=== PATIENT | male | born 1960 | race Caucasian/White ===

== ENCOUNTER 2018-09-13 12:54 | Day surgery (SDC) | payer MEDICARE ==
[2018-09-13 15:34] VITALS: BP 123/72; TEMP 98.8; BMI 22.3
[2018-09-13] MEDS ORDERED: Prevnar 13-Val Conj/PF 0.5 ML SYRINGE IM ONE (16:00)
--- NOTE | 2018-09-13 16:21 | ULT ---
ULTRASOUND GUIDED PARACENTESIS: Date: 09-13-18 History: Symptomatic ascites. FINDINGS: Informed consent obtained prior to the procedure. Note is made that the patient's INR is elevated, increasing the risk for bleeding. This was discussed with the ordering physician as well as the patient and the patient's family and despite the increase d risk of bleeding, procedure was felt to be medically necessary. Pre-procedural imaging demonstrates ascites within the right upper, right lower, and left lower quadr ant. The right midabdomen and prepped and draped in normal sterile fashion. Skin was anesthetized with 1% buffered Lidocaine. With direct sonographic guidance, a 5 [place] Curvoeh catheter is advanced into the ascites and removal o f the stylet yields yellow fluid. 4.7 L were removed. The patient tolerated the procedure well. No po st procedural bleeding. IMPRESSION: Successful ultrasound guided paracentesis yielding 4700 cc of yellow fluid. POS: [facility]
== END 2018-09-13 14:30 | disposition home or self-care (01) ==
LOC: ULT 12:54
PROVIDERS: ATTEND Internal Medicine
PROC: 0W9G3ZZ Drainage of Peritoneal Cavity, Percutaneous Approach (ICD-10-PCS; principal; 2018-09-13)
DX: R18.8 Other ascites (principal); Z88.0 Allergy status to penicillin; Z79.52 Long term (current) use of systemic steroids; Z79.2 Long term (current) use of antibiotics; Z79.899 Other long term (current) drug therapy
CPT/HCPCS: 49083

== ENCOUNTER 2018-09-25 11:07 | Emergency (ER) | payer MEDICARE ==
[2018-09-25 11:49] LABS: #Eosinphils 0.1 thou/uL (0.0-0.7); #Lymphocytes 1.2 thou/uL (1.20-3.40); #Monocytes 1.7 thou/uL (0.11-0.59); #Neutrophils 11.1 thou/uL (1.40-6.50); %Basophils 0.3 % (0.0-1.0); %Eosinophils 0.6 % (0.0-10.0); %Lymphocytes 8.8 % (21.0-51.0); %Monocytes 11.7 % (0.0-10.0); %Neutrophils 78.6 % (42.0-75.0); Hemoglobin 10.6 g/dL (14.0-18.0); Mean Corpuscular HGB CONC 33.5 g/dL (32.0-36.0); Mean Corpuscular Hemoglobin 34.2 pg (27.0-31.0); Mean Platelet Volume 7.3 fL (7.4-10.4); Platelet Count 200 thou/uL (130-400); RBC Distribution Width 12.9 % (11.5-14.5); Red Blood Cell (RBC) Count 3.09 mill/uL (4.70-6.10); White Blood Cell (WBC) Count 14.1 thou/uL (4.8-10.8)
[2018-09-25 12:28] LABS: ALT (SGPT) 23 U/L (8-55); AST (SGOT) 54 U/L (5-34); Alkaline Phosphatase 130 U/L (40-150); Anion Gap 14 mmol/L (10-20); BUN (Urea Nitrogen) 12 mg/dL (8.4-25.7); Bilirubin, Total 8.3 mg/dL (0.2-1.2); Calc. Creatinine Clearance 0 mL/min (70-130); Calcium 8.4 mg/dL (7.8-10.44); Carbon Dioxide 20 mmol/L (22-29); Chloride 97 mmol/L (98-107); Estimated GFR-MDRD Greater than 90; Globulin 4.9 g/dL (2.4-3.5); Glucose 111 mg/dL (70-105); Potassium 4.7 mmol/L (3.5-5.1); Protein, Total 6.9 g/dL (6.0-8.3); Sodium 126 mmol/L (136-145)
--- NOTE | 2018-09-25 12:32 | RAD ---
CHEST 1 VIEW: HISTORY: Shortness of breath worsening over the last 3 days. History of cirrhosis. Prior paracentesis, 019. COMPARISON: 08/28/2018. FINDINGS: Somewhat less than optimal inspiratory effort noted bilaterally. Horizontal parenchymal changes in t he left lower lobe which are new from the prior study raise the concern for left lower lobe partial a telectasis and/or pneumonia with possible small left pleural effusion. The upper lung zones and righ t lung are clear. No significant cardiomegaly. IMPRESSION: Parenchymal change in the left lower lobe new from prior study raising concern for left lower pneumon ia and/or atelectasis. POS: [facility]
[2018-09-25] MEDS ORDERED: Lidocaine 1% w/Epinephrine 1:100K 20 ML VIAL ONE (14:09)
== END 2018-09-25 15:30 ==
LOC: ERS 11:07
DX: K72.10 Chronic hepatic failure without coma (principal); R14.0 Abdominal distension (gaseous); R06.02 Shortness of breath; I10 Essential (primary) hypertension; K21.9 Gastro-esophageal reflux disease without esophagitis; Z79.899 Other long term (current) drug therapy
CPT/HCPCS: 36415; 71045; 80053; 83880; 84484; 85025; 93005; J2001

== ENCOUNTER 2018-10-06 09:49 | Day surgery (SDC) | payer MEDICARE ==
[2018-10-05 15:02] VITALS: BMI 21.7
[2018-10-06] MEDS ORDERED: Sodium Bicarbonate 2.5 MEQ/5 ML VIAL ONE (10:23)
[2018-10-06 14:49] VITALS: BP 116/71; TEMP 97.7
--- NOTE | 2018-10-06 15:23 | ULT ---
ULTRASOUND GUIDED PARACENTESIS THERAPEUTIC: DATE: 10/06/2018. HISTORY: A 58-year-old male with alcoholic cirrhosis and associated symptomatic ascites causing abdominal dist ention and abdominal discomfort. TECHNIQUE: Signed informed consent obtained. Ultrasound survey of 4 quadrants of abdomen. Pocket of fluid in t he right upper quadrant selected. Overlying skin prepared and draped in the usual sterile fashion. A 25-gauge needle was used to apply buffered Lidocaine superficially and deeply under ultrasound guid ance. Under ultrasound guidance, a 5 Sammarinese Yueh catheter was advanced in tandem with the 25-gauge n eedle into the pocket of free fluid. The stylette of the Yueh catheter and the 25-gauge needle were removed. The Yueh catheter was connected to a series of evacuated bottles via plastic tubing. Hortencia ter was removed after drainage. The patient tolerated the procedure well. No complications. FINDINGS: Images prior to the paracentesis demonstrate a large pocket of fluid in the right upper quadrant, and small and moderate-sized pockets of free fluid elsewhere. Subsequent images demonstrate a 25-gauge needle, followed by a Yueh catheter, in the pocket of free f luid in the right upper quadrant. A total of 5250 mL of nonhemorrhagic, translucent, straw-colored fluid was drained. Post drainage image demonstrates a significant moderate amount of remaining free fluid in the right u pper quadrant. IMPRESSION: Successful therapeutic paracentesis, with drainage of 5.25 L of ascites fluid. POS: [facility]
== END 2018-10-06 12:30 ==
LOC: ULT 09:49
PROVIDERS: ATTEND Internal Medicine
PROC: 0W9G3ZZ Drainage of Peritoneal Cavity, Percutaneous Approach (ICD-10-PCS; principal; 2018-10-06)
DX: K70.31 Alcoholic cirrhosis of liver with ascites (principal); K72.90 Hepatic failure, unspecified without coma; Z79.52 Long term (current) use of systemic steroids; Z79.899 Other long term (current) drug therapy; Z88.0 Allergy status to penicillin
CPT/HCPCS: 49083

== ENCOUNTER 2018-10-16 14:47 | Inpatient (IN) | payer MEDICARE ==
[2018-10-16] MEDS ORDERED: Pantoprazole 40 MG VIAL ONE (15:41)
[2018-10-16 15:55] LABS: #Basophils 0.1 thou/uL (0.0-0.2); #Eosinphils 0.3 thou/uL (0.0-0.7); #Lymphocytes 1.7 thou/uL (1.20-3.40); #Monocytes 1.7 thou/uL (0.11-0.59); #Neutrophils 10.8 thou/uL (1.40-6.50); %Basophils 0.4 % (0.0-1.0); %Eosinophils 2.3 % (0.0-10.0); %Lymphocytes 11.5 % (21.0-51.0); %Monocytes 11.5 % (0.0-10.0); %Neutrophils 74.3 % (42.0-75.0); Mean Corpuscular HGB CONC 32.9 g/dL (32.0-36.0); Mean Corpuscular Hemoglobin 32.8 pg (27.0-31.0); Mean Corpuscular Volume 99.6 fL (78.0-98.0); Mean Platelet Volume 7.9 fL (7.4-10.4); Platelet Count 166 thou/uL (130-400); RBC Distribution Width 12.8 % (11.5-14.5); Red Blood Cell (RBC) Count 2.74 mill/uL (4.70-6.10); White Blood Cell (WBC) Count 14.6 thou/uL (4.8-10.8)
[2018-10-16 16:03] LABS: INR-International Normal Ratio 2.5; PTT 41.1 SEC (22.9-36.1); Prothrombin Time 27.2 SEC (12.0-14.7)
[2018-10-16 16:12] LABS: ALT (SGPT) 26 U/L (8-55); AST (SGOT) 64 U/L (5-34); Albumin 1.8 g/dL (3.5-5.0); Alkaline Phosphatase 176 U/L (40-150); Anion Gap 15 mmol/L (10-20); BUN (Urea Nitrogen) 32 mg/dL (8.4-25.7); Bilirubin, Total 5.8 mg/dL (0.2-1.2); Calc. Creatinine Clearance 0 mL/min (70-130); Calcium 8.3 mg/dL (7.8-10.44); Carbon Dioxide 19 mmol/L (22-29); Chloride 95 mmol/L (98-107); Estimated GFR-MDRD 31; Globulin 4.7 g/dL (2.4-3.5); Glucose 119 mg/dL (70-105); Potassium 5.5 mmol/L (3.5-5.1); Protein, Total 6.5 g/dL (6.0-8.3); Sodium 123 mmol/L (136-145)
--- NOTE | 2018-10-16 18:31 | PDOC.FPRHP ---
- History of Present Illness Chief Complaint: Dark red stools History of Present Illness: Mr. Mari is a 58 yo M with PMHx alcoholic cirrhosis who presents to ED from [facility] for concern of maroon stools. He had 1 BM this morning and another one around lunch time. None since then. This has never happened before. He has also had some epigastric pain that is intermittent. None at this time. No radiation. ED Course: Protonix 40mg, 1L NS - Allergies/Adverse Reactions Allergies Allergy/AdvReac Type Severity Reaction Status Date / Time Penicillins Allergy Verified 10/16/18 21:31 - Home Medications Medication Instructions Recorded Confirmed Type Folic Acid [Folvite] 1 mg PO DAILY 08/17/18 10/16/18 History Furosemide [Lasix] 40 mg PO DAILY 08/17/18 10/16/18 History Rifaximin [Xifaxan] 550 mg PO BID 08/17/18 10/16/18 History Thiamine 100 mg PO DAILY 08/17/18 10/16/18 History prednisoLONE [Orapred Oral 40 mg PO DAILY 08/17/18 10/16/18 History Solution] Atenolol [Tenormin] 12.5 mg PO DAILY #0 tab 09/15/18 10/16/18 Rx Ipratropium/Albuterol Sulfate 3 ml NEB Q6H PRN #0 neb 09/15/18 10/16/18 Rx [DuoNeb] Lactulose 20 gm PO BID #0 udcup 09/15/18 10/16/18 Rx Pantoprazole [Protonix] 40 mg PO DAILY #0 tab 09/15/18 10/16/18 Rx Spironolactone [Aldactone] 100 mg PO BID-WM #0 tab 09/15/18 10/16/18 Rx - History PMHx: Alcoholic cirrhosis, HTN, GERD, hepatic encephalopathy PSHx: R ACL surgery, back surgery (herniated disk L4-L5) FHx: Dad - HTN Social: H/o chronic alcohol abuse (last use July 2018), tobacco abuse ( dipping since 13 years old) - Review of Systems General: denies: fever/chills Eyes: denies: eye pain, vision changes ENT: denies: nasal congestion, rhinorrhea Respiratory: reports: cough (dry), shortness of breath (all the time (can walk with wheelchair)) Cardiovascular: denies: chest pain, palpitation Gastrointestinal: reports: GI bleeding. denies: nausea, vomiting Genitourinary: denies: dysuria, polyuria Skin: reports: rashes, jaundice Musculoskeletal: denies: stiffness, swelling Neurological: denies: syncope, seizure Psychological: reports: anxiety, depression - Vital signs BP: 102/61 HR: 96 RR: 16 Tmax: 98.4 Pox: 97% on RA Wt: 175 lb - Physical Exam Constitutional: NAD, awake, alert and oriented (slow speech, slightly slurred) HEENT: normocephalic and atraumatic, PERRLA, EOMI, other (icteric sclera) Neck: supple, trachea midline Chest: no-tender to palpation, no lesions, other (spider angiomata) Heart: RRR, normal S1/S2, no murmurs/rubs/gallops, pulses present, other (2+ pitting edema to hips) Lungs: CTAB, no respiratory distress Abdomen: soft, non-tender, bowel sounds present, other (+ ascites, + fluid wave , mild caput medusa) Musculoskeletal: other (Upper limb atrophy) Neurological: no focal deficit, other (speech slurred) Skin: other (spider angiomata, scattered bruising) Heme/Lymphatic: other (bruising on hands) Psychiatric: normal mood and affect, good judgment and insight, intact recent and remote memory FMR H&P: Results - Labs Result Diagrams: 10/16/18 21:30 10/16/18 15:36 Lab results: WBC 14.6 thou/uL (4.8-10.8) H 10/16/18 15:36 Hgb 9.0 g/dL (14.0-18.0) L 10/16/18 15:36 Hct 27.3 % (42.0-52.0) L 10/16/18 15:36 MCV 99.6 fL (78.0-98.0) H 10/16/18 15:36 Plt Count 166 thou/uL (130-400) 10/16/18 15:36 Neutrophils % 74.3 % (42.0-75.0) 10/16/18 15:36 Sodium 123 mmol/L (136-145) L 10/16/18 15:36 Potassium 5.5 mmol/L (3.5-5.1) H 10/16/18 15:36 Chloride 95 mmol/L (98-107) L 10/16/18 15:36 Carbon Dioxide 19 mmol/L (22-29) L 10/16/18 15:36 BUN 32 mg/dL (8.4-25.7) H 10/16/18 15:36 Creatinine 2.22 mg/dL (0.7-1.3) H 10/16/18 15:36 Glucose 119 mg/dL (70-105) H 10/16/18 15:36 Calcium 8.3 mg/dL (7.8-10.44) 10/16/18 15:36 Total Bilirubin 5.8 mg/dL (0.2-1.2) H 10/16/18 15:36 AST 64 U/L (5-34) H 10/16/18 15:36 ALT 26 U/L (8-55) 10/16/18 15:36 Alkaline Phosphatase 176 U/L (40-150) H 10/16/18 15:36 Serum Total Protein 6.5 g/dL (6.0-8.3) 10/16/18 15:36 Albumin 1.8 g/dL (3.5-5.0) L 10/16/18 15:36 FMR H&P: A/P - Problem List (1) Melena Current Visit: Yes Status: Acute Code(s): K92.1 - MELENA (2) GI bleed Current Visit: Yes Status: Acute Code(s): K92.2 - GASTROINTESTINAL HEMORRHAGE, UNSPECIFIED (3) Hyperkalemia Current Visit: Yes Status: Acute Code(s): E87.5 - HYPERKALEMIA (4) Hyponatremia Current Visit: Yes Status: Acute Code(s): E87.1 - HYPO-OSMOLALITY AND HYPONATREMIA (5) Cirrhosis Current Visit: Yes Status: Chronic Code(s): K74.60 - UNSPECIFIED CIRRHOSIS OF LIVER Qualifiers: Hepatic cirrhosis type: alcoholic cirrhosis Ascites presence: with ascites Qualified Code(s): K70.31 - Alcoholic cirrhosis of liver with ascites (6) History of alcohol abuse Current Visit: Yes Status: Chronic Code(s): Z87.898 - PERSONAL HISTORY OF OTHER SPECIFIED CONDITIONS (7) Hyperbilirubinemia Current Visit: Yes Status: Acute Code(s): E80.6 - OTHER DISORDERS OF BILIRUBIN METABOLISM (8) Transaminitis Current Visit: Yes Status: Acute Code(s): R74.0 - NONSPEC ELEV OF LEVELS OF TRANSAMNS & LACTIC ACID DEHYDRGNSE (9) Elevated INR Current Visit: Yes Status: Acute Code(s): R79.1 - ABNORMAL COAGULATION PROFILE (10) Leukocytosis Current Visit: Yes Status: Acute Code(s): D72.829 - ELEVATED WHITE BLOOD CELL COUNT, UNSPECIFIED (11) HTN (hypertension) Current Visit: Yes Status: Chronic Code(s): I10 - ESSENTIAL (PRIMARY) HYPERTENSION (12) LAUREN (acute kidney injury) Current Visit: Yes Status: Acute Code(s): N17.9 - ACUTE KIDNEY FAILURE, UNSPECIFIED (13) Hepatic encephalopathy Current Visit: Yes Status: Chronic Code(s): K72.90 - HEPATIC FAILURE, UNSPECIFIED WITHOUT COMA (14) DTs (delirium tremens) Current Visit: Yes Status: Resolved Code(s): F10.231 - ALCOHOL DEPENDENCE WITH WITHDRAWAL DELIRIUM (15) Physical deconditioning Current Visit: Yes Status: Acute Code(s): R53.81 - OTHER MALAISE - Plan Mr Mari is a 58yo male with liver cirrhosis presenting for blood in stool with likely upper GI bleed Suspected Upper GI Bleed - Start Protonix gtt - Consult GI in AM - Monitor coags daily - Repeat H&H and BMP ordered - NPO at midnight - Octreotide if bleeding recurs - Will start SBP ppx with Ceftriaxone - Admit to medical Hyperkalemia - 5.5, no EKG changes - Repeat BMP - If increased repeat EKG and Kayexalate Hyponatremia - Decreased from prior baseline, 123 - Continue to monitor Cirrhosis - MELD 34 - Monitor coags, daily CMP - Manage suspected GI bleed as above - Currently undergoing therapeutic paracentesis, scheduled for tomorrow at 0930 - Possibly paracentesis tonight. - Discussion of hospice at last hospitalization, pt opted to use days of rehab before hospice services. Consider consulting palliative care Deconditioning - Receiving PT/OT outpt currently - PT/OT LAUREN - Cr 2.22 - Continue to monitor Hyperbilirubinemia - Due to liver cirrhosis INR of 2.5 - Continue to monitor HTN - Monitor BPs - Home med Atenolol if elevated Hx of DTs - No alcohol use since Jul 2018 - Continue Thiamine for hx of alcohol abuse Hepatic Encepholopathy - Continue home spironolactone, lactulose and Xifaxan Code Status: DNR DVT ppx: None FMR H&P: Upper Level - Pertinent history 58 yo M with presents after having 2 melanotic stools at [place]. Endorses shortness of breath with exertion. Also endorses epigastric pain which comes and goes. Denies f/c, current abdominal pain. - Pertinent findings VS and labs reviewed Gen: awake, alert, oriented HEENT: NCAT, icteric sclera CHEST: spider angiomata CV: RRR, no murmur noted RESP: CTAB ABD: distended, bowel sound present, weeping lesion on L abdomen, no erythema, no tenderness, fluid wave present EXT: 2+ pitting edema to lower abdomen - Plan Date/Time: 10/16/18 1831 58 yo M here with melanotic stool concerning for upper GI bleed 1. Melena - Suspect upper GI bleed, protonix gtt - No BM since lunch time today - H&H stable, will repeat in 4 hours - No hematemesis - Monitor coags - SBP prophylaxis - Octreotide if any further evidence of bleeding 2. Hyperkalemia - No EKG changes - Will trend and give kayexelate if persistent/rising 3. Hyponatremia - Slightly lower than reported baseline - Will monitor 4. End stage cirrhosis - MELD 24 - Consider palliative care consult - Comfort measures 5. Hyperbilirubinemia, mild transaminitis, elevated INR - 2/2 liver disease 6. Leukocytosis - Aware, no concern for focal infection - Mild abdominal pain, consider dx paracentesis 7. HTN - Atenolol if tolerates 8. LAUREN - Elevated from baseline - Possibly component of hepatorenal syndrome 9. Hepatic encephalopathy - Rifaximin and lactulose I, Sylvie Cedeño MD, PGY-3, have evaluated this patient and agree with findings/ plan as outlined by technology internship resident. Pertinent changes/additions are listed here. Addendum - Attending - Attending Attestation Date/Time: 10/16/18 [id number] I personally evaluated the patient and discussed the management with Dr. York /Davidson. I agree with the History, Examination, Assessment and Plan documented above with any addition or exceptions noted below. Patient with history of alcoholic cirrhosis and suspected end stage disease ( DNAR status) presenting with 2 episodes of "maroon" stools at his retirement. He reports last episode at noon today and none since then. No increased pain other that from his abdominal distention, which was scheduled for paracentesis tomorrow. Denies fevers, chills, vomiting. Reports EGD a few months ago without varices. Hgb overall stable from previous checks, no active bleeding at this time. Will make NPO at midnight, sooner if bleeding recurs or hemodynamic instability ensues. Consult GI in AM. Protonix and Rocephin for SBP ppx though lower suspicion for upper GI bleed. If recurs will add octreotide. Trend H/H. MELD-Na has worsened recently, and renal values increased, portending poorer prognosis. Will give albumin x1 and recheck labs in AM to include coags. Patient is DNAR.
[2018-10-16] MEDS ORDERED: Albumin 25% 25 GM/100 ML BOT IVPB SCH ×2 (21:12→21:30)
[2018-10-16 21:33] VITALS: BMI 23.0
[2018-10-16 21:44] LABS: Hemoglobin 9.1 g/dL (14.0-18.0); Platelet Count 161 thou/uL (130-400)
[2018-10-16 22:02] LABS: Anion Gap 14 mmol/L (10-20); BUN (Urea Nitrogen) 32 mg/dL (8.4-25.7); Calc. Creatinine Clearance 39 mL/min (70-130); Calcium 8.3 mg/dL (7.8-10.44); Carbon Dioxide 20 mmol/L (22-29); Chloride 97 mmol/L (98-107); Estimated GFR-MDRD 31; Glucose 100 mg/dL (70-105); Potassium 5.8 mmol/L (3.5-5.1); Sodium 125 mmol/L (136-145)
[2018-10-16] MEDS: Pantoprazole 80 MG in Sodium Chloride 0.9% 100 ML IVP SCH (22:06)
[2018-10-16] MEDS: cefTRIAXone\\ROCEPHIN 1 GM in Sodium Chloride 0.9% 100 ML IVPB SCH (22:18)
[2018-10-17] MEDS: Morphine 2 MG/ML SYRINGE SLOW IVP PRN ×2 (01:15→08:57)
[2018-10-17] MEDS ORDERED: Ondansetron PF 4 MG/2 ML Vial SLOW IVP PRN (01:30)
[2018-10-17 02:07] LABS: #Eosinphils 0.2 thou/uL (0.0-0.7); #Lymphocytes 1.1 thou/uL (1.20-3.40); #Neutrophils 11.8 thou/uL (1.40-6.50); %Basophils 0.3 % (0.0-1.0); %Eosinophils 1.4 % (0.0-10.0); %Lymphocytes 7.5 % (21.0-51.0); %Monocytes 6.9 % (0.0-10.0); Mean Corpuscular HGB CONC 32.5 g/dL (32.0-36.0); Mean Corpuscular Hemoglobin 32.8 pg (27.0-31.0); Mean Platelet Volume 7.7 fL (7.4-10.4); Platelet Count 168 thou/uL (130-400); RBC Distribution Width 12.8 % (11.5-14.5); Red Blood Cell (RBC) Count 2.75 mill/uL (4.70-6.10); White Blood Cell (WBC) Count 14.1 thou/uL (4.8-10.8)
--- NOTE | 2018-10-17 02:07 | PDOC.EVN ---
Event Note - Event Note Event Note: Residents called to bedside after patient had large red BM and was complaining of increased abdominal pain. At this time, the patient says the severe pain has passed and he is just having a little discomfort and nausea. He did not see the BM but the nurse reports there was a "good amount" of bright red blood in the toilet. Discussed with him the possibility of needing a blood transfusion which he agrees to if necessary. Risks/benefits/alternatives discussed including risk of allergic reaction/transfusion reaction or very low risk of transmission of disease. Shortly thereafter, nurse reported that he had become tachycardic to the 110s. Pain was still the same, mild but manageable. No further BM at this time. Stat H &H ordered and was noted to be stable. Type and cross for 2 units initiated at this time. Will plan for transfusion if remains tachycardic, any more BRBPR/ hematemesis or other concerning signs. Will consult Dr. Astudillo and follow recommendations. NPO. Patient and family understanding and agreeable to plan at this time.
[2018-10-17 02:14] LABS: Prothrombin Time 30.8 SEC (12.0-14.7)
[2018-10-17] MEDS: Octreotide Acetate 1,250 MCG in Sodium Chloride 0.9% 250 ML 250 ML IVPB SCH (02:33)
[2018-10-17 03:03] LABS: ALT (SGPT) 25 U/L (8-55); AST (SGOT) 56 U/L (5-34); Albumin 2.2 g/dL (3.5-5.0); Alkaline Phosphatase 145 U/L (40-150); Anion Gap 18 mmol/L (10-20); BUN (Urea Nitrogen) 35 mg/dL (8.4-25.7); Bilirubin, Total 6.8 mg/dL (0.2-1.2); Calc. Creatinine Clearance 35 mL/min (70-130); Calcium 8.6 mg/dL (7.8-10.44); Carbon Dioxide 16 mmol/L (22-29); Chloride 97 mmol/L (98-107); Estimated GFR-MDRD 27; Globulin 4.3 g/dL (2.4-3.5); Glucose 105 mg/dL (70-105); Protein, Total 6.5 g/dL (6.0-8.3); Sodium 126 mmol/L (136-145)
[2018-10-17] MEDS ORDERED: Lactated Ringer's 500 ML IV SCH (03:30)
[2018-10-17] MEDS ORDERED: Octreotide Acetate 1,000 mcg/ml Multi-Dose Vial IV SCH (04:00)
[2018-10-17] MEDS ORDERED: Octreotide Acetate 100 MCG/ML VIAL SLOW IVP SCH ×2 (04:00)
[2018-10-17] MEDS: Pantoprazole 80 MG in Sodium Chloride 0.9% 100 ML IVP SCH ×2 (06:50→18:24)
--- NOTE | 2018-10-17 07:52 | PDOC.FM ---
- Subjective Subjective: Mr. Mari is resting comfortably in bed, he reports improved pain and no recent hematochezia - Objective Vital Signs & Weight: Vital Signs (12 hours) Temp Pulse Pulse Resp BP BP Pulse Ox 10/17/18 07:31 97.8 F 103 H 16 114/69 100 10/17/18 06:21 97.6 F 103 H 18 113/68 100 10/17/18 06:11 97.6 F 99 16 110/70 100 10/17/18 05:49 97.3 F L 103 H 18 105/62 100 10/17/18 04:00 97.7 F 104 H 16 106/65 100 10/17/18 01:56 117 H 10/17/18 01:14 95 20 119/67 94 L 10/16/18 21:36 93 L 10/16/18 21:34 97.9 F 95 18 111/71 93 L Weight Weight 74.84 kg I&O: 10/16/18 10/17/18 10/18/18 06:59 06:59 06:59 Intake Total 1075 Balance 1075 Result Diagrams: 10/17/18 01:48 10/17/18 01:48 Phys Exam - Physical Examination Constitutional: NAD HEENT: moist MMs Neck: no JVD Respiratory: clear to auscultation bilateral Cardiovascular: RRR, no significant murmur tender, distended Neurological: non-focal Psychiatric: normal affect Deviation from normal: stigmata of chronic liver disease Dx/Plan (1) Elevated INR Code(s): R79.1 - ABNORMAL COAGULATION PROFILE Status: Acute (2) GI bleed Code(s): K92.2 - GASTROINTESTINAL HEMORRHAGE, UNSPECIFIED Status: Acute (3) Hyperbilirubinemia Code(s): E80.6 - OTHER DISORDERS OF BILIRUBIN METABOLISM Status: Acute (4) Hyperkalemia Code(s): E87.5 - HYPERKALEMIA Status: Acute (5) Cirrhosis Code(s): K74.60 - UNSPECIFIED CIRRHOSIS OF LIVER Status: Chronic Qualifiers: Hepatic cirrhosis type: alcoholic cirrhosis Ascites presence: with ascites Qualified Code(s): K70.31 - Alcoholic cirrhosis of liver with ascites (6) Hepatic encephalopathy Code(s): K72.90 - HEPATIC FAILURE, UNSPECIFIED WITHOUT COMA Status: Chronic (7) History of alcohol abuse Code(s): Z87.898 - PERSONAL HISTORY OF OTHER SPECIFIED CONDITIONS Status: Chronic - Plan Plan: Suspected Upper GI Bleed - Protonix drip, octreotide, consider adding propranolol - Monitor coags, H&H and BMP - NPO until seen by GI - Will start SBP ppx with Ceftriaxone - monitor on medical - GI consulted, Dr. Astudillo. Appreciate recommendations Hyperkalemia - 5.5, no EKG changes - Kayexalate given - continue to monitor Hyponatremia - Decreased from prior baseline, 123 - Continue to monitor Cirrhosis - MELD 34 - Monitor coags, daily CMP - Manage suspected GI bleed as above - Currently undergoing therapeutic paracentesis, scheduled for tomorrow at 0930 - Discussion of hospice at last hospitalization, pt opted to use days of rehab before hospice services. - PC consulted Deconditioning - Receiving PT/OT outpt currently - PT/OT LAUREN - Cr 2.22 - Continue to monitor Hyperbilirubinemia - Due to liver cirrhosis INR of 2.5 - Continue to monitor HTN - Monitor BPs - Home med Atenolol if elevated Hx of DTs - No alcohol use since Jul 2018 - Continue Thiamine for hx of alcohol abuse Hepatic Encepholopathy - Continue home spironolactone, lactulose and Xifaxan Code Status: DNR DVT ppx: None
[2018-10-17] MEDS ORDERED: Spironolactone 100 MG TAB PO SCH (08:00)
[2018-10-17] MEDS: Folic Acid 1 MG TAB PO SCH (08:56)
[2018-10-17] MEDS: Rifaximin 550 MG TAB PO SCH ×2 (08:57→20:53)
--- NOTE | 2018-10-17 09:26 | EKG ---
Test Reason : ROUTINE Blood Pressure : / mmHG Vent. Rate : 112 BPM Atrial Rate : 112 BPM P-R Int : 148 ms QRS Dur : 072 ms QT Int : 348 ms P-R-T Axes : 032 -05 018 degrees QTc Int : 475 ms Sinus tachycardia Possible Lateral infarct , age undetermined Abnormal ECG When compared with ECG of 25-SEP-2018 11:33, Nonspecific T wave abnormality now evident in Anterolateral leads Confirmed by DR. Mayte SANDERS ([id number]) on 10/17/2018 9:25:57 AM Referred By: MYRNA ANDRADE Confirmed By:DR. Mayte SANDERS
--- NOTE | 2018-10-17 13:07 | PRG ---
DATE OF SERVICE: 10/17/2018 Mr. Mari is an unfortunate 58-year-old man, admitted with upper GI bleed and advanced cirrhosis. He is currently on octreotide and PPI infusion, awaiting consultation with the GI Service for endoscopy. He will also need a repeat paracentesis as he is now receiving this every 1 to 2 weeks. Job ID: [id number]
[2018-10-17] MEDS ORDERED: GoLYTELY 4,000 ml Bottle PO SCH (18:00)
[2018-10-17] MEDS: Melatonin 3 MG TAB PO SCH (20:52)
[2018-10-17] MEDS: Midodrine HCl 5 MG TAB PO SCH (20:53)
[2018-10-17] MEDS: Albumin 25% 25 GM/100 ML BOT IVPB SCH (21:00)
--- NOTE | 2018-10-17 21:43 | CON ---
DATE OF CONSULTATION: 10/17/2018 REASON FOR CONSULTATION: Cirrhosis, hematochezia. CONSULTING PHYSICIAN: Atiya York MD. HISTORY OF PRESENT ILLNESS: The patient is a 58-year-old male, with past medical history of hypertension, GERD, alcoholic hepatitis, and alcoholic cirrhosis complicated by ascites and hepatic encephalopathy, presenting with complaints of hematochezia. Upon chart review, the patient was admitted to [facility] in 07/2018 with complaints of significant weakness after sustaining a fall at home. He was ultimately transferred to [facility] where he was noted to have increased ascites as well as cirrhotic morphology on imaging. He did undergo an EGD during that particular hospitalization and per the patient's daughter, they did not find any evidence of esophageal varices, but instead found "spider webs" in the lining of the stomach consistent with portal hypertensive gastropathy. He was subsequently discharged to a rehab facility and had been in that institution ever since. However, approximately 2 days ago, he experienced the onset of hematochezia, characterized as a large amount of maroon-colored stools and over the next 24 to 48 hours have 3 additional stools that were maroonish in color. There was no associated pain with having a bowel movement, although he did endorse some increased midepigastric pain. It was characterized as a sharp stabbing type sensation, was intermittent, would last for 5 to 10 seconds and occur every 2 to 3 hours with a severity of 10/10 when it did occur. In comparing the relations of the blood to the abdominal pain, the hematochezia came first with the midepigastric abdominal pain appearing later, but again not clearly associated one with the other. Over the course of this hospitalization, he had the appearance of a bright red blood bowel movement this morning that was not witnessed by nursing staff and communicated to the resident doctor on-call. Today he states that he is feeling well except for intermittent midepigastric abdominal pain that is currently being controlled by morphine. He has not had any further bowel movements, bloody or otherwise, over the course of today. He does complain of increased abdominal distention and had been having increased abdominal distention for sometime for which he has been getting routine paracenteses in order to drain off the ascitic fluid for comfort. He has also been taking lactulose twice daily, and while on this regimen, was having approximately 2 semi-solid bowel movements today with clear sensorium. On examination today, he did exhibit clear sensorium with being oriented x4. Currently, he denies any nausea, vomiting, fevers, chills, hematemesis, constipation, dysphagia, or odynophagia. Of note, he did have that EGD at [facility] in 07/2018, which showed no varices, but the presence of portal hypertensive gastropathy. He has never had a colonoscopy. REVIEW OF SYSTEMS: A 10-category review of systems was obtained with all responses negative except for the pertinent positives as listed in HPI. PAST MEDICAL HISTORY: As per HPI. PAST SURGICAL HISTORY: Back surgery and right ACL surgery. FAMILY HISTORY: Denies any GI malignancies. SOCIAL HISTORY: Drinking approximately 12 beers daily for the last 20 years prior to 07/2018, but has discontinued all alcohol consumption since then. He does endorse chewing tobacco though currently. No illicit drug use. OUTPATIENT MEDICATIONS: Reviewed. ALLERGIES: PENICILLIN. PHYSICAL EXAMINATION: VITAL SIGNS: Temperature 98, pulse 105, blood pressure 100/56, respiratory rate 16, saturating 100% on room air. GENERAL: The patient was lying in bed, in no acute distress. Alert and oriented x4. HEENT: Neck, supple. No JVD noted, but mild scleral icterus was seen. CARDIOVASCULAR: Tachycardic rate, but regular rhythm. No discernible murmurs, gallops, or rubs. RESPIRATORY: Clear to auscultation bilaterally with no discernible wheezes or rales. ABDOMEN: Normoactive bowel sounds. Mild tenseness to palpation with significant abdominal distention. Mild tenderness to palpation in the midepigastric region , but no other abnormalities during abdominal exam. EXTREMITIES: 2+/3+ bilateral lower extremity edema extending up into the bilateral thighs. No cyanosis or clubbing. LABORATORY DATA: CBC with a white blood cell count of 14.1, hemoglobin 9, hematocrit 27.7, platelets 168. INR 3. Chemistry with a sodium of 126, potassium 5, chloride 97, CO2 of 16, BUN 35, creatinine 2.46, glucose 105, AST 56, ALT 25, alkaline phosphatase 145, total bilirubin 6.8. MELD score calculated at 36. IMAGING DATA: No current GI imaging is available for review. ASSESSMENT AND PLAN: The patient is a 58-year-old male with past medical history of hypertension, gastroesophageal reflux disease, alcoholic hepatitis, and alcoholic cirrhosis complicated by ascites and hepatic encephalopathy, presenting with hematochezia. Hematochezia. The patient is presenting with acute onset of hematochezia, characterized as maroon to bright red bloody bowel movements that have been occurring over the last 48 to 72 hours. During this hospitalization, he has had an observed bright red bloody bowel movement which raises concern for either brisk upper gastrointestinal bleed versus a colonic bleeding source. Given his relative hemodynamic stability, the likelihood of an upper GI bleeding source is unlikely as well as a recent EGD within the last few months only showing portal hypertensive gastropathy, which could potentially lead to significant bleeding with an elevated INR, but also unlikely. At this point, the colonic origin of his bleeding is a bit more likely and could be due to any numbered reasons including portal hypertensive colopathy, inflammatory bowel disease (less likely), hemorrhoidal bleeding, arteriovenous malformation, Dieulafoy lesion, ischemic colitis and/or gastrointestinal neoplasm. Given the possibility that an upper gastrointestinal bleeding source cannot be ruled out, I would recommend endoscopic evaluation with both upper and lower endoscopy. Recommendations: 1. We will continue to trend H and H and transfuse as necessary to maintain an H and H of 7/21. 2. Continue to monitor clinically for signs of active GI bleeding. 3. We would place the patient on a clear liquid diet today with plans for GoLYTELY prep in anticipation for EGD and colonoscopy tomorrow. Please make the patient n.p.o. at midnight in preparation for these procedures. 4. We would continue to trend INR and evaluation of neurological status daily as they could be harbingers of worsening hepatic function. Cirrhosis. The patient is presenting with the diagnosis of cirrhosis in 07/2018 based upon thrombocytopenia, cirrhotic morphology on imaging, and portal hypertensive gastropathy on upper endoscopy. At this time, the most likely etiology would be chronic alcohol use where the patient was drinking approximately 12 beers daily for the last 20+ years. Currently with decompensated disease and given the presence of ascites and hepatic encephalopathy with a current MELD score of 36 and Child- Craig classification C. There is no current GI imaging available in our system to evaluate for the possibility of possible hepatocellular carcinoma. However, given his significantly elevated MELD score, his 90-day mortality is approaching 70%. With the history of hepatic encephalopathy, it is currently controlled with lactulose b.i.d. and for his ascites, he has been getting routine paracenteses in order to drain the fluid for comfort. However, upon evaluation of his lab during this admission, he is noted to have a significantly elevated BUN as well as creatinine concerning for possible hepatorenal syndrome. He is currently on diuretic management, which could further confound the issue based on the possible prerenal azotemia associated with their use. Recommendations: 1. We would hold any diuretics at this point in time given the propensity to further renal dysfunction. 2. We would start the patient on albumin 50 g b.i.d. daily in an attempt to maintain a proper intravascular space and a slow progression of possible hepatorenal syndrome. 3. We would place the patient on midodrine 5 mg t.i.d. as part of treatment for hepatorenal syndrome. 4. We would continue PPI drip at this point in time as an adjunctive therapy for hepatorenal syndrome. 5. Given the patient's significantly elevated MELD score, hospice consultation is not unreasonable. We will continue to follow. Please call with any questions. Job ID: [id number] MABEL
[2018-10-17] MEDS: cefTRIAXone\\ROCEPHIN 1 GM in Sodium Chloride 0.9% 100 ML IVPB SCH (23:24)
[2018-10-18] MEDS: Morphine 2 MG/ML SYRINGE SLOW IVP PRN ×2 (00:29→08:19)
[2018-10-18] MEDS: Octreotide Acetate 1,250 MCG in Sodium Chloride 0.9% 250 ML 250 ML IVPB SCH (01:22)
[2018-10-18] MEDS: Pantoprazole 80 MG in Sodium Chloride 0.9% 100 ML IVP SCH ×2 (04:46→17:46)
[2018-10-18] MEDS ORDERED: Phenylephrine HCL 10 MG/ML VIAL ONE (06:58)
--- NOTE | 2018-10-18 07:00 | PDOC.FM ---
- Subjective Subjective: Mr. Mari is resting comfortably in bed, with his daughter at bedside. She reports no acute events overnight, and minimal bleeding. - Objective Vital Signs & Weight: Vital Signs (12 hours) Temp Pulse Resp BP Pulse Ox 10/18/18 04:00 98.1 F 103 H 16 97/56 L 94 L 10/18/18 00:00 98.6 F 94 18 110/60 92 L 10/17/18 20:00 100 10/17/18 19:33 97.7 F 106 H 16 105/65 100 Weight Admit Weight 74.84 kg Weight 74.84 kg I&O: 10/16/18 10/17/18 10/18/18 06:59 06:59 06:59 Intake Total 1075 3430 Output Total 200 Balance 1075 3230 Result Diagrams: 10/18/18 06:44 10/18/18 06:44 Phys Exam - Physical Examination Constitutional: NAD HEENT: moist MMs Neck: no JVD distended Musculoskeletal: no edema Neurological: non-focal Psychiatric: normal affect Skin: no rash Dx/Plan (1) Elevated INR Code(s): R79.1 - ABNORMAL COAGULATION PROFILE Status: Acute (2) GI bleed Code(s): K92.2 - GASTROINTESTINAL HEMORRHAGE, UNSPECIFIED Status: Acute (3) Hyperbilirubinemia Code(s): E80.6 - OTHER DISORDERS OF BILIRUBIN METABOLISM Status: Acute (4) Hyperkalemia Code(s): E87.5 - HYPERKALEMIA Status: Acute (5) Cirrhosis Code(s): K74.60 - UNSPECIFIED CIRRHOSIS OF LIVER Status: Chronic Qualifiers: Hepatic cirrhosis type: alcoholic cirrhosis Ascites presence: with ascites Qualified Code(s): K70.31 - Alcoholic cirrhosis of liver with ascites (6) Hepatic encephalopathy Code(s): K72.90 - HEPATIC FAILURE, UNSPECIFIED WITHOUT COMA Status: Chronic (7) History of alcohol abuse Code(s): Z87.898 - PERSONAL HISTORY OF OTHER SPECIFIED CONDITIONS Status: Chronic - Plan Plan: Suspected Upper GI Bleed - Protonix drip, octreotide - Monitor coags, H&H and BMP - Will start SBP ppx with Ceftriaxone - monitor on medical - GI consulted. Appreciate recommendations - upper and lower scopes today Hyperkalemia - 5.5, no EKG changes - Kayexalate given - continue to monitor Hyponatremia - Decreased from prior baseline, 123 - Continue to monitor Cirrhosis - MELD 34 - Monitor coags, daily CMP - Manage suspected GI bleed as above - Currently undergoing therapeutic paracentesis, scheduled for tomorrow at 0930 - Discussion of hospice at last hospitalization, pt opted to use days of rehab before hospice services. - PC consulted Deconditioning - Receiving PT/OT outpt currently - PT/OT LAUREN - Cr 2.22 - Continue to monitor Hyperbilirubinemia - Due to liver cirrhosis INR of 2.5 - Continue to monitor HTN - Monitor BPs - Home med Atenolol if elevated Hx of DTs - No alcohol use since Jul 2018 - Continue Thiamine for hx of alcohol abuse Hepatic Encepholopathy - Continue home spironolactone, lactulose and Xifaxan Code Status: DNR DVT ppx: None
[2018-10-18 07:12] LABS: #Eosinphils 0.2 thou/uL (0.0-0.7); #Lymphocytes 1.6 thou/uL (1.20-3.40); #Monocytes 2.3 thou/uL (0.11-0.59); #Neutrophils 11.6 thou/uL (1.40-6.50); %Basophils 0.2 % (0.0-1.0); %Monocytes 14.5 % (0.0-10.0); %Neutrophils 74.3 % (42.0-75.0); Hemoglobin 7.7 g/dL (14.0-18.0); Mean Corpuscular HGB CONC 33.1 g/dL (32.0-36.0); Mean Corpuscular Hemoglobin 33.5 pg (27.0-31.0); Mean Platelet Volume 7.7 fL (7.4-10.4); Platelet Count 130 thou/uL (130-400); RBC Distribution Width 12.6 % (11.5-14.5); Red Blood Cell (RBC) Count 2.28 mill/uL (4.70-6.10); White Blood Cell (WBC) Count 15.6 thou/uL (4.8-10.8)
[2018-10-18 07:16] LABS: Prothrombin Time 31.4 SEC (12.0-14.7)
[2018-10-18 07:29] LABS: ALT (SGPT) 17 U/L (8-55); AST (SGOT) 36 U/L (5-34); Albumin 2.6 g/dL (3.5-5.0); Alkaline Phosphatase 93 U/L (40-150); Anion Gap 17 mmol/L (10-20); BUN (Urea Nitrogen) 37 mg/dL (8.4-25.7); Bilirubin, Total 9.6 mg/dL (0.2-1.2); Calc. Creatinine Clearance 29 mL/min (70-130); Calcium 8.6 mg/dL (7.8-10.44); Carbon Dioxide 17 mmol/L (22-29); Chloride 95 mmol/L (98-107); Estimated GFR-MDRD 22; Globulin 3.7 g/dL (2.4-3.5); Glucose 121 mg/dL (70-105); Potassium 5.1 mmol/L (3.5-5.1); Protein, Total 6.3 g/dL (6.0-8.3); Sodium 124 mmol/L (136-145)
[2018-10-18] MEDS: Midodrine HCl 5 MG TAB PO SCH ×3 (08:22→20:34)
[2018-10-18] MEDS: Folic Acid 1 MG TAB PO SCH (08:22)
[2018-10-18] MEDS: Rifaximin 550 MG TAB PO SCH ×2 (08:22→20:34)
[2018-10-18] MEDS: Albumin 25% 25 GM/100 ML BOT IVPB SCH ×2 (08:24→20:34)
[2018-10-18] MEDS ORDERED: Fentanyl 100 MCG/2 ML VIAL SLOW IVP ONE (11:28)
[2018-10-18] MEDS ORDERED: PROPOFOL 200 MG/20 ML VIAL ONE (11:46)
[2018-10-18] MEDS ORDERED: PHENYLEPHRINE-NS 100 MCG/ML 10 ML SYRINGE ONE (11:46)
--- NOTE | 2018-10-18 12:30 | PRG ---
DATE OF SERVICE: 10/18/2018 Mr. Mari is sitting in bed, in no acute distress other than complaints of his abdominal distention. We are awaiting EGD and paracentesis. He has evidence of no further signs of bleeding. Job ID: [id number]
[2018-10-18] MEDS ORDERED: GoLYTELY 4,000 ml Bottle PO SCH (13:45)
[2018-10-18] MEDS ORDERED: Sodium Bicarbonate 2.5 MEQ/5 ML VIAL ONE (14:11)
[2018-10-18] MEDS ORDERED: Lidocaine 1% PF 5 ML VIAL ONE (14:11)
--- NOTE | 2018-10-18 15:14 | OP ---
DATE OF PROCEDURE: 10/18/2018 PROCEDURE PERFORMED: Incomplete colonoscopy. PREMEDICATION: Given by the Anesthesiology Department. PREPROCEDURE DIAGNOSIS: Rectal bleeding/hematochezia. POSTPROCEDURE DIAGNOSES: 1. Poor bowel prep, unable to visualize. 2. Stage III prolapsing hemorrhoids. DESCRIPTION OF PROCEDURE: Written consents were obtained prior to procedure. After adequate sedation, rectal exam was performed. There were prolapsing hemorrhoids noted without any signs of bleeding or thrombosis. The endoscope was advanced into this rectal vault. A copious amount of loose, semi-liquid yellow stool was encountered. Despite vigorous irrigation, the colon could not be visualized. The endoscope was advanced up the sigmoid colon as a maximal extent. There was no bleeding seen. There was no blood visualized. Retroflexion could not be performed in the rectal vault. However, there were obvious stage III prolapsing hemorrhoids noted on rectal exam. There are no signs of bleeding from the hemorrhoids and no evidence of thrombosis. The patient tolerated the procedure well. ASSESSMENT: 1. Incomplete colon exam because of poor bowel prep. 2. Stage III prolapsing hemorrhoids. PLAN: Would plan additional bowel prep and re-attempt colonoscopy tomorrow. Job ID: [id number]
--- NOTE | 2018-10-18 15:21 | OP ---
DATE OF PROCEDURE: 10/18/2018 PROCEDURES PERFORMED: 1. Esophagogastroduodenoscopy. 2. Incomplete colonoscopy. PREPROCEDURE DIAGNOSES: 1. Hematochezia/rectal bleeding. 2. Acute on chronic anemia. 3. Cirrhosis. POSTPROCEDURE DIAGNOSES: 1. Mild portal gastropathy, otherwise normal upper endoscopy. 2. Inadequate bowel prep, unable to visualize colon. 3. Stage III prolapsing hemorrhoids, no bleeding. DESCRIPTION OF PROCEDURE: Written consents were obtained prior to the procedure. After adequate sedation, the forward viewing endoscope was advanced down the stomach under direct vision to the second portion of the duodenum. Both the second portion and the bulb appeared normal. The pylorus was patent. The gastric antrum, body, fundus, and cardia all appeared normal. Retroflexion did not show any gastric varices. The GE junction located at 36 cm from the incisors. There was no varices seen in the esophagus. Of note, only mild portal gastropathy was seen in the stomach without any source of bleeding seen. The patient tolerated the procedure well. ASSESSMENT: 1. Mild portal gastropathy. 2. Otherwise normal upper endoscopy. PLAN: Proceed with colonoscopy. Job ID: [id number]
--- NOTE | 2018-10-18 16:23 | ULT ---
SONOGRAPHIC GUIDED PARACENTESIS: 10/18/18 HISTORY: Abdominal pain and distention. Recurrent ascites. FINDINGS: After explaining the procedure and answering all questions, Sonographic survey shows large amount of free fluid. Sterile technique, buffered local anesthesia, sonographic guidance, and a right lateral a pproach were used to carefully advance a 19 gauge Yueh needle and catheter into the free fluid. Hortencia ter was left to drain a total volume of 7.0 liters dark slightly cloudy yellow liquid. Catheter was r emoved. Moderate amount of free fluid remained. Patient tolerated the procedure well and was dismisse d in improved condition. IMPRESSION: Technically successful sonographic guidance paracentesis. POS: [facility]
[2018-10-18] MEDS: Melatonin 3 MG TAB PO SCH (20:59)
[2018-10-18] MEDS: cefTRIAXone\\ROCEPHIN 1 GM in Sodium Chloride 0.9% 100 ML IVPB SCH (21:03)
[2018-10-19] MEDS: Octreotide Acetate 1,250 MCG in Sodium Chloride 0.9% 250 ML 250 ML IVPB SCH (03:03)
[2018-10-19] MEDS: Pantoprazole 80 MG in Sodium Chloride 0.9% 100 ML IVP SCH (03:05)
[2018-10-19 06:02] LABS: ALT (SGPT) 8 U/L (8-55); AST (SGOT) 21 U/L (5-34); Albumin 2.5 g/dL (3.5-5.0); Alkaline Phosphatase 58 U/L (40-150); Anion Gap 15 mmol/L (10-20); BUN (Urea Nitrogen) 39 mg/dL (8.4-25.7); Bilirubin, Total 8.4 mg/dL (0.2-1.2); Calc. Creatinine Clearance 30 mL/min (70-130); Carbon Dioxide 19 mmol/L (22-29); Chloride 97 mmol/L (98-107); Estimated GFR-MDRD 23; Globulin 2.1 g/dL (2.4-3.5); Glucose 111 mg/dL (70-105); Potassium 4.6 mmol/L (3.5-5.1); Protein, Total 4.6 g/dL (6.0-8.3); Sodium 126 mmol/L (136-145)
[2018-10-19 06:09] LABS: #Lymphocytes 1.1 thou/uL (1.20-3.40); #Monocytes 1.8 thou/uL (0.11-0.59); #Neutrophils 10.2 thou/uL (1.40-6.50); %Basophils 0.1 % (0.0-1.0); %Eosinophils 0.3 % (0.0-10.0); %Lymphocytes 8.4 % (21.0-51.0); %Monocytes 13.9 % (0.0-10.0); %Neutrophils 77.3 % (42.0-75.0); Hemoglobin 6.2 g/dL (14.0-18.0); Mean Corpuscular HGB CONC 32.1 g/dL (32.0-36.0); Mean Corpuscular Hemoglobin 32.9 pg (27.0-31.0); Mean Platelet Volume 8.3 fL (7.4-10.4); Platelet Count 105 thou/uL (130-400); RBC Distribution Width 12.5 % (11.5-14.5); White Blood Cell (WBC) Count 13.2 thou/uL (4.8-10.8)
[2018-10-19 06:10] LABS: Acanthocytes MODERATE= 6-15 cells (100X) (None Seen); Burr Cells SLIGHT = 2-5 cells (100X) (0-1/hpf); MDiff Complete? YES; Platelet Morphology Comment Appears Decreased
--- NOTE | 2018-10-19 06:56 | PDOC.FM ---
- Subjective Subjective: Mr. Mari is resting comfortably in bed, he reports his pain is well controlled and denies additional ischemia - Objective Vital Signs & Weight: Vital Signs (12 hours) Temp Pulse Resp BP Pulse Ox 10/18/18 23:45 99.6 F 76 20 100/60 93 L 10/18/18 20:00 94 L 10/18/18 19:13 99.1 F 101 H 16 97/59 L 92 L Weight Admit Weight 74.84 kg Weight 74.84 kg I&O: 10/17/18 10/18/18 10/19/18 06:59 06:59 06:59 Intake Total 1075 3430 600 Output Total 200 500 Balance 1075 3230 100 Result Diagrams: 10/19/18 04:10 10/19/18 04:10 Dx/Plan (1) Elevated INR Code(s): R79.1 - ABNORMAL COAGULATION PROFILE Status: Acute (2) GI bleed Code(s): K92.2 - GASTROINTESTINAL HEMORRHAGE, UNSPECIFIED Status: Acute (3) Hyperbilirubinemia Code(s): E80.6 - OTHER DISORDERS OF BILIRUBIN METABOLISM Status: Acute (4) Hyperkalemia Code(s): E87.5 - HYPERKALEMIA Status: Acute (5) Cirrhosis Code(s): K74.60 - UNSPECIFIED CIRRHOSIS OF LIVER Status: Chronic Qualifiers: Hepatic cirrhosis type: alcoholic cirrhosis Ascites presence: with ascites Qualified Code(s): K70.31 - Alcoholic cirrhosis of liver with ascites (6) Hepatic encephalopathy Code(s): K72.90 - HEPATIC FAILURE, UNSPECIFIED WITHOUT COMA Status: Chronic (7) History of alcohol abuse Code(s): Z87.898 - PERSONAL HISTORY OF OTHER SPECIFIED CONDITIONS Status: Chronic - Plan Plan: Suspected Upper GI Bleed - Protonix drip, octreotide - Monitor coags, H&H and BMP - Will start SBP ppx with Ceftriaxone - monitor on medical - GI consulted. Appreciate recommendations - repeat lower scope today Hyperkalemia - 5.5, no EKG changes - Kayexalate given - continue to monitor Hyponatremia - Decreased from prior baseline, 123 - Continue to monitor Cirrhosis - MELD 34 - Monitor coags, daily CMP - Manage suspected GI bleed as above - Currently undergoing therapeutic paracentesis, completed 10/18 - PC consulted, pt will return to [facility] on hospice when stable for DC Deconditioning - Receiving PT/OT outpt currently - PT/OT LAUREN - Cr elevated above baseline on admission - Continue to monitor HTN - Monitor BPs - Home med Atenolol if elevated Hx of DTs - No alcohol use since Jul 2018 - Continue Thiamine for hx of alcohol abuse Hepatic Encepholopathy - Continue home spironolactone, lactulose and Xifaxan Code Status: DNR DVT ppx: None
[2018-10-19] MEDS: Morphine 2 MG/ML SYRINGE SLOW IVP PRN ×2 (08:42→15:56)
[2018-10-19] MEDS: Folic Acid 1 MG TAB PO SCH (08:46)
[2018-10-19] MEDS: Midodrine HCl 5 MG TAB PO SCH ×2 (08:47→15:58)
[2018-10-19] MEDS: Rifaximin 550 MG TAB PO SCH (08:47)
--- NOTE | 2018-10-19 15:03 | PRG ---
DATE OF SERVICE: 10/19/2018 Mr. Mari is in seemingly good spirits this morning. He is still very slow of speech and somewhat lethargic. Unfortunately, his transaminases are improving, but INR is increasing suggesting that it is approaching complete liver failure and . Hospice has consulted and the patient will be discharged to their service. Job ID: [id number]
[2018-10-19 16:31] VITALS: BP 103/57; TEMP 97.8
--- NOTE | 2018-10-19 17:43 | PRG ---
DATE OF SERVICE: 10/19/2018 REASON FOR CONSULTATION: Cirrhosis, hematochezia. SUBJECTIVE: The patient underwent EGD yesterday with no observed signs of active GI bleeding, although there was some mild portal hypertensive gastropathy noted on the upper endoscopy. The colonoscopy could not be adequately performed due to a significant amount of retained solid and liquid stool within the colon, thereby limiting visualization. However, over the last 12 to 24 hours, the patient has not exhibited any further episodes of GI bleeding to include melena, hematochezia, or hematemesis. Currently, states that he is feeling well, but continues to have some mild abdominal pain due to abdominal distention. Otherwise, denies any nausea, vomiting, fevers, chills, GI bleeding, dysphagia, or odynophagia. OBJECTIVE: VITAL SIGNS: Temperature 97.8, pulse 108, blood pressure 103/57, respiratory rate 18, saturating 94% on room air. GENERAL: The patient is lying in bed, in no acute distress. Alert and oriented x4. CARDIOVASCULAR: Tachycardic rate, but regular rhythm. RESPIRATORY: Clear to auscultation bilaterally. ABDOMEN: Normoactive bowel sounds. Mild tenderness to palpation in all abdominal quadrants with significant abdominal distention. Mild tenderness to palpation in the mid-epigastric region. EXTREMITIES: 2+/3+ bilateral lower extremity edema, extending up into the thighs. LABORATORY DATA: CBC with a white blood cell count of 13.2, hemoglobin 6.2, hematocrit 19.4, platelets 105. INR 4. Chemistry with a sodium of 126, potassium 4.6, chloride 97, CO2 of 19, BUN 39, creatinine 2.89, glucose 111, AST 21, ALT 8, alkaline phosphatase 58, total bilirubin 8.4 with a calculated MELD score of 40. IMAGING DATA: The patient underwent EGD on October 18, 2018, which showed mild portal hypertensive gastropathy without evidence of either esophageal or gastric varices. There were also no signs of active/recent bleeding seen during that examination. Colonoscopy performed on October 18, 2018 showed a copious amount of loose semi-liquid yellow stool with inadequate visualization of the colonic mucosa despite vigorous irrigation with sterile water. The endoscope was advanced to the sigmoid colon, but unable to be past this region due to the poor colonic prep. There was no evidence of active/recent bleeding, although there were grade 3 prolapsing hemorrhoids on rectal examination. ASSESSMENT AND PLAN: The patient is a 58-year-old male with past medical history of hypertension; gastroesophageal reflux disease; alcoholic hepatitis and alcoholic cirrhosis, complicated by ascites; and hepatic encephalopathy, presenting with possible gastrointestinal bleed. Gastrointestinal bleed/hematochezia. The patient initially presented with acute onset of hematochezia, characterized as maroon to bright red bloody bowel movements that occurred for approximately 48 to 72 hours prior to admission. However, shortly after admission, he did not have any further episodes of these bloody bowel movements. Upper endoscopy and colonoscopy performed on October 18, 2018 did not show any evidence of overt gastrointestinal bleeding. However, during the course of this hospitalization, his platelet count has continued to decrease as well as his INR has continued to increase, most likely associated with liver failure. At this point in time, given his elevated INR and liver dysfunction, he could be bleeding from any mucosal surfaces within the GI tract that could further decrease his blood counts resulting in a significant anemia. Infusion of blood at this point would not correct the underlying issue with the underlying issue being his significant liver dysfunction and/or failure. Recommendations: 1. We would hold off on any additional endoscopic management at this time due to the patient's wishes to be placed on hospice. 2. Continue to monitor clinically for signs of active gastrointestinal bleeding. Cirrhosis. The patient is presenting with a diagnosis of cirrhosis in July 2018 based on thrombocytopenia, cirrhotic morphology on imaging and portal hypertensive gastropathy on upper endoscopy. At this time, the most likely etiology would be his chronic alcohol abuse for the last 20 plus years. Currently, presenting with decompensated disease with the presence of ascites and hepatic encephalopathy with a current MELD score of 40 and Child-Craig classification C. With his significantly elevated MELD score, his 90-day mortality is approaching 70% and with the rapid progression during this hospitalization, his long-term prognosis is poor. At this time, the patient has elected to be discharged from the hospital under hospice care, which I feel is a very reasonable decision based on his current liver function. Resuscitative measures during this hospitalization for possible hepatorenal syndrome did result in mild improvement in his renal function, but based on his worsening liver function during this admission, could still theoretically be hepatorenal syndrome type 1, in which case again hospice is a very reasonable option. Recommendations: 1. We would hold any diuretics at this point given propensity to further renal dysfunction. 2. Could stop midodrine on discharge. 3. Agree with placement of the patient on hospice care. We will sign off at this time. Please call with any additional questions. Job ID: [id number]
== END 2018-10-19 17:28 | disposition hospice, inpatient (51) | DRG 378 ==
LOC: ERS 14:47 → T4-A 18:33
PROVIDERS: ADMIT Student in an Organized Health Care Education/Training Program; ATTEND Student in an Organized Health Care Education/Training Program
PROC: 0DJ08ZZ Inspection of Upper Intestinal Tract, Via Natural or Artificial Opening Endoscopic (ICD-10-PCS; principal; 2018-10-18)
PROC: 0DJD8ZZ Inspection of Lower Intestinal Tract, Via Natural or Artificial Opening Endoscopic (ICD-10-PCS; 2018-10-18)
PROC: 0W9G3ZZ Drainage of Peritoneal Cavity, Percutaneous Approach (ICD-10-PCS; 2018-10-18)
DX: K92.1 Melena (principal); E87.1 Hypo-osmolality and hyponatremia; N17.9 Acute kidney failure, unspecified; F10.231 Alcohol dependence with withdrawal delirium; K76.6 Portal hypertension; D62 Acute posthemorrhagic anemia; Z66 Do not resuscitate; Z51.5 Encounter for palliative care; E87.5 Hyperkalemia; E80.6 Other disorders of bilirubin metabolism; R74.0 Nonspecific elevation of levels of transaminase and lactic acid dehydrogenase [LDH]; K70.31 Alcoholic cirrhosis of liver with ascites; R79.1 Abnormal coagulation profile; D72.829 Elevated white blood cell count, unspecified; I10 Essential (primary) hypertension; K72.90 Hepatic failure, unspecified without coma; K21.9 Gastro-esophageal reflux disease without esophagitis; F17.220 Nicotine dependence, chewing tobacco, uncomplicated; D64.9 Anemia, unspecified; K31.89 Other diseases of stomach and duodenum; K64.2 Third degree hemorrhoids; Z98.890 Other specified postprocedural states; Z88.0 Allergy status to penicillin
CPT/HCPCS: 36415; 36430; 49083; 80053; 82274; 85025; 85610; 85730; 86850; 86900; 86901; 90471; 90732; 93005; 93010; 96361; 96374; C9113; G0009; J0696; J2001; J2270; J2354; J2370; J2405; J2704; J7050; P9047; P9059